=== PATIENT | male | born 1995 | race Caucasian/White ===

== ENCOUNTER 2017-05-30 16:44 | Emergency (ER) | payer BC ==
[~2017-05-30 16:44] MED LIST: ALBUTEROL MININEB NEB; BACTRIM DS TABL1 TA1 PO; BENADRYL A12.5 MG/1 PO; BENZONATATE PO; DELSYM30 MG/5 M1 PO; HYDROCODON-ACE1 EAC7 PO; IBUPROFEN800 MG PO; MEDROL DOSEPAK4 MG PO; NAPROSYN250 M1 PO; NO MEDICATIONS; ZITHROMAX PO
[2017-05-30] MEDS ORDERED: NO MEDICATIONS (16:55)
[2017-05-30 18:04] LABS: URINE SOURCE CLEAN CATCH
[2017-05-30 18:06] LABS: MICRO INDICATED? NO; URINE APPEARANCE CLEAR; URINE BILIRUBIN NEG (NEG); URINE BLOOD NEG (NEG); URINE COLOR YELLOW; URINE GLUCOSE NEG (NORM); URINE KETONE NEG (NEG); URINE LEUKOCYTE ESTERASE NEG (NEG); URINE NITRATE NEG (NEG); URINE PROTEIN NEG (NEG); URINE SPECIFIC GRAVITY 1.015 (1.003-1.035); URINE UROBILINOGEN 0.2 MG/DL (NORM)
[2017-06-02 15:24] LABS: CHLAMYDIA TRACH Not Detected (Not Detected); N GONOR Not Detected (Not Detected)
== END 2017-05-30 18:36 | disposition home or self-care (01) ==
LOC: SED 16:44
PROVIDERS: Physician Assistant
DX: R59.0 Localized enlarged lymph nodes (principal); Z98.890 Other specified postprocedural states; F17.290 Nicotine dependence, other tobacco product, uncomplicated; Z91.013 Allergy to seafood; Z88.0 Allergy status to penicillin
CPT/HCPCS: 81003; 87491; 87591; 96372; 99283; J0696